=== PATIENT | female | born 1990 | race Caucasian/White ===

== ENCOUNTER 2016-04-24 10:38 | Inpatient (IN) | payer OTHER ==
[2016-04-24] VITALS (7 sets, daily range): BP systolic 121–143; BP diastolic 60–94
[~2016-04-24] VITALS: Ht 157.5 cm; Wt 70.0 kg
[~2016-04-24 10:38] MED LIST: ADVIL200 MG PO; DECADRON4 MG PO; DIAMOX250 MG PO; ENDOCET 5-3251 EACH PO; IBUPROFEN800 MG PO; MIRENA52 MG IY; PRENATAL TABLE1 EACH PO; PRENATAL VITAM1 EAC3 PO; TYLENOL REGULA325 MG PO
[2016-04-24 18:37] LABS: ADD MIUA? YES; BILIRUBIN NEGATIVE; BLOOD NEGATIVE; COLOR YELLOW ((YELLOW)); GLUCOSE (STRIP) NEGATIVE; KETONES NEGATIVE; LEUKOCYTES SMALL; NITRITE NEGATIVE; PH, URINE 8.5 (5-8); PROTEIN (STRIP) NEGATIVE; SPECIFIC GRAVITY 1.015 (1.000-1.030); UROBILINOGEN 0.2 MG/DL (0.2-1.0)
[2016-04-24 19:18] LABS: RED BLOOD CELLS NONE SEEN /HPF (0-5); WHITE BLOOD CELLS 0-5 /HPF (0-5)
[2016-04-24 19:19] LABS: AMORPHOUS PHOSPHATE CRYSTALS 3+; BACTERIA 3+ /HPF; CASTS NONE SEEN /LPF; CRYSTALS PRESENT; EPITHELIAL CELLS RARE /HPF; MUCUS RARE /LPF
[2016-04-24 20:12] LABS: METH RESISTANT S AUREUS PCR NEGATIVE (NEGATIVE)
[2016-04-24 20:13] LABS: PROBE CHECK PASS; SPECIMEN PROCESSING CONTROL PASS
[2016-04-25] VITALS (18 sets, daily range): BP systolic 100–133; BP diastolic 51–83
[2016-04-25] MEDS ORDERED: HYDROCODON-ACE1 EAC7 PO (07:42)
[2016-04-25] MEDS ORDERED: DIAZEPAM5 MG PO (07:42)
[2016-04-25] MEDS ORDERED: METAXALONE800 MG PO (07:42)
[2016-04-25 16:38] LABS: INTERNAL CONTROL VALID? YES
== END 2016-04-25 18:01 | disposition home or self-care (01) | DRG 26 ==
LOC: 2SOUTH 10:38 → 4WEST 10:51 → 2SOUTH 10:51 → 4WEST 18:22
PROVIDERS: Anesthesiology; Neurological Surgery
DX: G93.5 Compression of brain (principal); Q04.8 Other specified congenital malformations of brain; Q75.8 Other specified congenital malformations of skull and face bones; F41.9 Anxiety disorder, unspecified; F17.200 Nicotine dependence, unspecified, uncomplicated
CPT/HCPCS: 70450; 81003; 84703; 87086; 87641; J0131; J0330; J1100; J1170; J2175; J2250; J2405; J2930; J3010; J3370; J3480; J8540; S0020

== ENCOUNTER 2016-07-10 08:47 | Inpatient (IN) | payer OTHER ==
[~2016-07-10] VITALS: Ht 157.5 cm; Wt 62.7 kg
[~2016-07-10 08:47] MED LIST changes: +DIAZEPAM5 MG PO; +HYDROCODON-ACE1 EAC7 PO; +METAXALONE800 MG PO
[2016-07-10 12:06] VITALS: BP 128/88
[2016-07-10 20:00] VITALS: BP 128/88
[2016-07-10 20:34] LABS: APPEARANCE CLEAR/COLORLESS; RED CELL AREA COUNTED 18; RED CELL COUNT 12 /MM^3 (0-1); RED CELL DILUTION 1; WBC AREA COUNTED 18; WBC DILUTION 1; WHITE CELL COUNT 0 /MM^3 (0-5); WHITE CELL RAW COUNT 0
[2016-07-10 20:39] LABS: CSF EOSINOPHILS 0 % (0-25); MONO RAW COUNT 1; MONONUCLEAR WBC'S 100 % (50-90); POLYNUCLEAR WBC'S 0 % (0-3)
[2016-07-10 20:44] LABS: BODY FLUID PROTEIN < 3.0 G/DL
[2016-07-10 20:55] LABS: APPEARANCE (RECHECK) CLEAR/COLORLESS; CSF TUBE NUMBER (RECHECK) TUBE #1; RED CELL AREA COUNTED 18; RED CELL COUNT (RECHECK) 1 /MM^3 (0-1); RED CELL DILUTION 1
[2016-07-10 23:20] VITALS: BP 127/58
[2016-07-11 03:35] VITALS: BP 112/67
[2016-07-11 08:07] VITALS: BP 116/72
[2016-07-11] MEDS ORDERED: METAXALONE800 MG PO (08:07)
[2016-07-11] MEDS ORDERED: HYDROCODON-ACE1 EAC7 PO (08:07)
[2016-07-11 11:51] VITALS: BP 130/72
[2016-07-12 09:07] LABS: INTERNAL CONTROL VALID? YES
== END 2016-07-11 12:49 | disposition home or self-care (01) | DRG 33 ==
LOC: 2SOUTH 08:47 → 3EAST 19:12
PROVIDERS: Neurological Surgery
PROC: 00160J6 Bypass Cerebral Ventricle to Peritoneal Cavity with Synthetic Substitute, Open Approach (ICD-10-PCS; principal; 2016-07-10)
DX: Q07.02 Arnold-Chiari syndrome with hydrocephalus (principal); G93.89 Other specified disorders of brain; R20.0 Anesthesia of skin; G43.909 Migraine, unspecified, not intractable, without status migrainosus; F17.200 Nicotine dependence, unspecified, uncomplicated; F41.9 Anxiety disorder, unspecified
CPT/HCPCS: 70450; 82945; 84157; 84703; 87070; 87205; 89051; C1750; C1752; J0330; J1100; J1170; J2250; J2405; J2710; J3010; J3480; J7120

== ENCOUNTER 2017-07-30 15:57 | Emergency (ER) | payer OTHER ==
[~2017-07-30] VITALS: Ht 157.5 cm; Wt 57.9 kg
[2017-07-30 17:42] LABS: HEMATOCRIT 38.1 % (36.0-46.0); HEMOGLOBIN 13.2 G/DL (11.9-15.5); MCH 30.8 PG (29.0-34.0); MCHC 34.6 G/DL (30.0-36.0); PLATELET COUNT 183 K/uL (156-360); RBC DIS.WIDTH-SD 42.5 % (39-53); RED BLOOD COUNT 4.28 M/uL (3.80-5.20); WHITE BLOOD COUNT 6.8 K/uL (4.1-10.2)
[2017-07-30 17:43] LABS: APPEARANCE CLOUDY ((CLEAR)); BILIRUBIN NEGATIVE; BLOOD NEGATIVE; COLOR YELLOW ((YELLOW)); GLUCOSE (STRIP) NEGATIVE; KETONES NEGATIVE; LEUKOCYTES MODERATE; NITRITE NEGATIVE; PROTEIN (STRIP) NEGATIVE; SPECIFIC GRAVITY 1.014 (1.000-1.030); UROBILINOGEN 0.2 MG/DL (0.2-1.0)
[2017-07-30 17:56] LABS: ALBUMIN 4.4 g/dL (3.2-4.8)
[2017-07-30 17:57] LABS: CHLORIDE 104 mEq/L (99-109); POTASSIUM 4.5 mEq/L (3.7-5.4); SODIUM 140 mEq/L (136-147)
[2017-07-30 17:59] LABS: GLUCOSE 89 mg/dL (70-99); TOTAL PROTEIN 7.2 g/dL (6.4-8.3)
[2017-07-30 17:59] LABS: BACTERIA 1+ /HPF; EPITHELIAL CELLS 3+ /HPF; MUCUS TRACE /LPF; UCUL ADDED? YES
[2017-07-30 18:01] LABS: TOTAL BILIRUBIN 0.5 mg/dL (0.0-1.0)
[2017-07-30 18:02] LABS: ALKALINE PHOSPHATASE 80 IU/L (3-129)
[2017-07-30 18:03] LABS: CREATININE 0.8 mg/dL (0.6-1.3); GFR ESTIMATE (CALCULATED) > 59 mL/min/
[2017-07-30 18:04] LABS: AST (GOT) 17 IU/L (2-34); UREA NITROGEN (BUN) 12 mg/dL (9-23)
[2017-07-30 18:05] LABS: ALT (GPT) 19 IU/L (3-49)
[2017-07-30 18:06] LABS: LIPASE 39 U/L (1.0-51.0)
[2017-07-30 18:12] LABS: QUANTITATIVE HCG < 4.0 MIU/ML
[2017-07-30] MEDS ORDERED: MACROBID100 MG PO (18:19)
[2017-07-30 18:26] VITALS: BP 137/91
== END 2017-07-30 18:28 | disposition home or self-care (01) ==
LOC: EME 15:57
PROVIDERS: Nurse Practitioner Acute Care
DX: N39.0 Urinary tract infection, site not specified (principal); R10.31 Right lower quadrant pain; I10 Essential (primary) hypertension; F41.9 Anxiety disorder, unspecified; Z98.2 Presence of cerebrospinal fluid drainage device; Z72.0 Tobacco use; Z88.2 Allergy status to sulfonamides; Z88.0 Allergy status to penicillin
CPT/HCPCS: 70250; 71045; 72040; 74018; 80053; 81003; 83690; 84702; 85027; 87086; 99281; 99283